=== PATIENT | male | born 1970 | race Caucasian/White ===

== ENCOUNTER → 2016-07-22 | Outpatient (REF) | LOC: WSOH 08:53 | DX: Z02.4 Encounter for examination for driving license (principal) ==

== ENCOUNTER → 2016-10-25 | Outpatient (REF) | LOC: WSOH 10:01 | DX: Z00.00 Encounter for general adult medical examination without abnormal findings (principal) ==

== ENCOUNTER 2018-03-24 09:38 | Outpatient (RCR) | payer OTHER | END 2018-04-17 14:02 | disposition home or self-care (01) | LOC: WSPT 09:38 | DX: M54.5 Low back pain (principal) ==

== ENCOUNTER 2021-01-21 09:30 | Outpatient (RCR) | payer OTHER | END 2021-04-12 | disposition home or self-care (01) | LOC: WSOH | DX: L03.116 Cellulitis of left lower limb (principal); Z98.890 Other specified postprocedural states ==

== ENCOUNTER 2021-02-03 17:19 | Emergency (ER) | payer BC ==
[~2021-02-03] VITALS: Ht 180.3 cm; Wt 90.0 kg
[2021-02-03 17:45] VITALS: TEMP 98.4
[2021-02-03 19:29] LABS: HEMATOCRIT 43.7 % (42.0-52.0); HEMOGLOBIN 14.8 g/dl (13.5-18.0); MEAN CELL VOLUME 89 fl (80.0-100.0); MEAN CORPUSCULAR HEMOGLOBIN 30 pg (27.0-31.0); MEAN CORPUSCULAR HGB CONC 34 g/dl (33.0-37.0); MEAN PLATELET VOLUME 10.8 fl (7.4-10.4); PLATELET COUNT 191 K/mm3 (130-400); RED BLOOD COUNT 4.91 M/mm3 (4.20-5.60)
[2021-02-03 19:35] LABS: ALBUMIN 3.8 gm/dL (3.5-5.0); BILIRUBIN,TOTAL 0.9 mg/dL (0.0-1.0); CALCIUM 9.3 mg/dL (8.4-10.2); CREATININE, serum 0.77 (0.66-1.25); POTASSIUM 3.7 mmol/L (3.4-5.0); TOTAL PROTEIN 7.1 gm/dL (6.4-8.2)
[2021-02-03 19:46] LABS: C-REACTIVE PROTEIN 12.4 mg/dL (0.0-0.9)
[2021-02-03 19:49] LABS: BAND 1 % (0-10); EOSINOPHIL 2 % (0-4); LYMPHOCYTE 5 % (20.0-51.0); NEUTROPHILS 84 % (42.0-75.2)
[2021-02-03 19:51] LABS: PLATELET ESTIMATE NORMAL (NORMAL)
[2021-02-03 23:05] VITALS: BP 170/108; PULSE 76
== END 2021-02-03 23:05 | disposition home or self-care (01) ==
LOC: COL.ER 17:19
PROVIDERS: Nurse Practitioner
DX: U07.1 COVID-19 (principal)
CPT/HCPCS: J1100; J7030; Q9967